=== PATIENT | male | born 1985 | race Hispanic/Latino ===

== ENCOUNTER 2017-01-13 11:58 | Emergency (ER) | payer OTHER ==
[2017-01-13 12:13] VITALS: BP 114/70; PULSE 57; TEMP 97; O2SAT 99; BMI 28.7
--- NOTE | 2017-01-13 12:46 | ED PDOC ---
HPI: CCC, URI, Sore Throat Time Seen by Provider: 01/13/17 12:06 Chief Complaint (Nursing): Cough, Cold, Congestion Chief Complaint (Provider): Cough History Per: Patient History/Exam Limitations: no limitations Onset/Duration Of Symptoms: Hrs Current Symptoms Are (Timing): Still Present Associated Symptoms: Sore Throat, Cough, Sputum, Nasal Congestion Ear Symptoms: Left: None, Right: None Severity: Mild Additional Complaint(s): Patient is a 31 year old male presenting to the ED complaining of cough since last night. Cough is associated with shortness of breath, congestion, and sore throat. Patient reports intermittent productive cough. Denies taking medication for his symptoms. Denies ear pain. PMD: Steffen Bright Past Medical History Reviewed: Historical Data, Nursing Documentation, Vital Signs Vital Signs: Last Vital Signs Temp 97 F L 01/13/17 12:12 Pulse 57 L 01/13/17 12:12 Resp BP 114/70 01/13/17 12:12 Pulse Ox 99 01/13/17 12:49 - Medical History PMH: No Chronic Diseases - Family History Family History: States: No Known Family Hx - Allergies Allergies/Adverse Reactions: Allergies Allergy/AdvReac Type Severity Reaction Status Date / Time seasonal Allergy CONGESTION Uncoded 01/13/17 12:26 Review of Systems ROS Statement: Except As Marked, All Systems Reviewed And Found Negative ENT: Positive for: Nose Congestion, Throat Pain. Negative for: Ear Pain Respiratory: Positive for: Cough, Shortness of Breath, Sputum Physical Exam - Reviewed Nursing Documentation Reviewed: Yes Vital Signs Reviewed: Yes - Physical Exam Appears: Positive for: Well, Non-toxic, No Acute Distress Head Exam: Positive for: ATRAUMATIC, NORMAL INSPECTION, NORMOCEPHALIC Skin: Positive for: Normal Color, Warm, DRY Eye Exam: Positive for: Normal appearance, EOMI ENT: Positive for: Normal ENT Inspection Neck: Positive for: Normal, Painless ROM Cardiovascular/Chest: Positive for: Regular Rate, Rhythm. Negative for: Gallop , Murmur Respiratory: Positive for: Normal Breath Sounds. Negative for: Accessory Muscle Use, Rhonchi, Respiratory Distress Extremity: Positive for: Normal ROM Neurologic/Psych: Positive for: Alert, Oriented - ECG O2 Sat by Pulse Oximetry: 99 (RA) Pulse Ox Interpretation: Normal Medical Decision Making Medical Decision Making: Time: 12:10 Impression: URI r/o PNA Plan: CXR Albuterol 3 ml INH Rx given with instructions for usage. Scribe Attestation: Documented by Edelmira Farmer acting as a scribe for Sonia Jiménez. Provider Attestation: All medical record entries made by the Scribe were at my direction and personally dictated by me. I have reviewed the chart and agreed that the record accurately reflects my personal performance of the history, physical exam, medical decision making, and the department course for this patient. I have also personally directed, reviewed, and agree with the discharge instructions and disposition. .
[2017-01-13] MEDS ORDERED: Albuterol-Ipratrop 3 mg / 0.5 (3 ml) UD INH STA (12:49)
[2017-01-13] MEDS ORDERED: Albuterol-Ipratrop 3 mg / 0.5 (3 ml) UD ONE (12:51)
--- NOTE | 2017-01-13 13:16 | RAD ---
HISTORY: Cough COMPARISON: No prior. TECHNIQUE: Chest PA and lateral FINDINGS: LUNGS: The lungs are well inflated and clear. PLEURA: No significant pleural effusion identified. No pneumothorax apparent. CARDIOVASCULAR: Normal. OSSEOUS STRUCTURES: No significant abnormalities. VISUALIZED UPPER ABDOMEN: Normal. OTHER FINDINGS: None. IMPRESSION: No active pulmonary disease.
[2017-01-13 13:50] VITALS: RESP 14
== END 2017-01-13 13:49 | disposition home or self-care (01) ==
LOC: H.ER 11:58
DX: R05 Cough (principal)